=== PATIENT | female | born 1940 | race Caucasian/White ===

== ENCOUNTER → 2018-01-06 | Outpatient (CLI) | payer OTHER, MEDICARE ==
[~2018-01-06] VITALS: Ht 167.6 cm; Wt 68.0 kg
[~2018-01-06] MED LIST: ALLEGRA ALLERGY60 MG PO; ALPHA LIPOIC A300 MG PO; CALCIUM CARBO1250 MG PO; COREG6.25 MG PO; HYDROCODONE-AP1 EAC6 PO; JANUVIA100 MG PO; LIPITOR 20 MG T20 M1 PO; METFORMIN HCL500 MG PO; PREMARIN30 GM TOP; STOOL SOFTENER240 MG PO; TRAMADOL 50 MG50 MG PO; VERAPAMIL SR180 MG PO; VITAMIN B12-FO1 EAC1 PO; VITAMIN D31000 UNI2 PO; XARELTO20 MG PO
--- NOTE | ~2018-01-06 | HPC ---
[facility] [address] [place] [address] PAIN MANAGEMENT CONSULTATION Name: ERENDIRA GLOVER [facility] [id number] Admission: 01/06/18 Attend Phys: Brenden Tellez DO Discharge: Date of : 41 Report #: [id number] THIS REPORT FOR: //name// CC: Gavin Tellez DATE OF SERVICE: 01/06/2018 The patient is a 77-year-old female seen in consultation at the request of Dr. Fisher for assistance with management of left lumbar radicular pain radiating down into the foot. The patient notes she fell on 11/03/2017, severed small chip fracture in the right foot. Initially started with crutches and then wearing a boot on the right lower extremity, significantly exacerbated her gait disturbance and now she has left lumbar radicular pain. She notes paresthesia, electric burning, pain that is continuous, shooting, aching and tender, rates anywhere from 3-9 on a visual analog scale. Has subjective paresthesia going to left anterior lower extremity. Denies bowel or bladder changes or saddle anesthesia. Gets some relief with tramadol, ultimately require 2 at a time and some hydrocodone. She uses Xarelto for atrial fibrillation, hence is unable to take nonsteroidal anti-inflammatory agents. REVIEW OF SYSTEMS: Complete review of systems was attached to chart and gone over with the patient. She is , does not smoke or drink alcohol to excess. History of non-insulin dependent diabetes for which she takes metformin and Januvia. Hemoglobin A1c is well controlled, running in the 6.1 area. History of atrial fibrillation, again uses Xarelto as noted in chief complaint. Hypertension, treated with carvedilol and verapamil. Has had 2 spontaneous pneumothorax in 1984 and 1998. Otherwise, review of systems is noncontributory (negative). The patient is retired, has been for past 10 years. Pain impact score averages about 52/70. PHYSICAL EXAMINATION: This is a 5 feet 6 inches, 150-pound female, BMI is 24.2 kg/m2. Blood pressure is 144/91, pulse 82, respirations of 14. Cranial nerves 2-12 are grossly intact. Pupils equal, react to light and accommodation. Extraocular muscles are intact. There is no nystagmus or lateral gaze deviation. Thyroid is unremarkable. Upper extremity strength is preserved. Heart is regular and rhythmical at this time despite history of atrial fibrillation and SVT. Lungs are clear to auscultation. Abdomen is benign. Rises from chair using armrest. Has a markedly antalgic gait favoring the left leg. Left lower extremity dorsiflexion, extension and flexion is limited objectively about 3/5 to muscle testing. Right leg is stronger at 4-5/5. Patellar reflex is absent on the left, 1/4 in the right. Straight leg raise is grossly positive at 30 degrees. Achilles reflexes are generally preserved. Skin: Integument is intact. [facility] [address] [place] [address] PAIN MANAGEMENT CONSULTATION Name: ERENDIRA GLOVER Room #: REG [facility] Garza#: [id number] Admission: 01/06/18 Attend Phys: Brenden Tellez DO Discharge: Date of : 42 Report #: [id number] DIAGNOSTIC STUDIES: Including MRI of the lumbar spine from 11/29/2017 notes grade 1 anterolisthesis at L4-L5 measuring 0.5 cm, marked bilateral hypertrophic changes, mild bilateral neural foraminal narrowing. L3-L4 notes grade 1 anterolisthesis at L3-L4, again about 0.5 cm. There is an annular tear and small broad-based disk bulge at this level. ASSESSMENT: Symptomatic lumbar radiculopathy with clinical exam and history, left L4 distribution. RECOMMENDATION: The patient has been off Xarelto for 3 days. I will move forward with a left L4-L5 transforaminal epidural injection today. Continue tramadol 50 mg every 4-6 hours. Resume Xarelto tonight. Follow up in 3 weeks for reevaluation. We will have patient stop Xarelto 3 days prior to evaluation. If she has ongoing pain at that time, we may consider midline epidural injection L3-L4. Thank you for allowing me to participate in the patient's care. We will keep abreast of her progress. PROCEDURE: Transforaminal epidural injection under fluoroscopy. PROCEDURE NOTE: After both written and informed consent was obtained including risk of spinal cord damage, infection, increased pain and paralysis, the patient agreed to proceed. The patient was taken to the fluoroscopy suite, placed in a prone position with appropriate abdominal bolstering. After sterile prep with ChloraPrep and sterile drape, a skin wheal with 1% Xylocaine was raised. A 22 gauge 4-1/2 inch epidural Tuohy needle was inserted. From an oblique approach into the posterior-superior aspect of the left L4-L5 neural foramen with continuous pressure on the glass syringe plunger for loss of resistance. Glass syringe was filled with 2 cc of 0.1 Xylocaine. The glass loss of resistance syringe was removed. A low volume extension tubing was connected, negative aspiration was accomplished for cerebrospinal fluid or blood. 1 mL of Omnipaque was injected which showed spread both within the epidural space and laterally along the nerve root. This was followed with 80 mg of triamcinolone plus 1 mL of 1.5% preservative-free Xylocaine. Needle was partially withdrawn, 0.5 mL of Xylocaine was injected to clear the needle and the needle was removed. The area was cleansed, Band-Aid was applied. The patient was allowed to ambulate to the recovery room, discharged in good and stable condition. The patient has had a prior SENSITIVITY TO IODINE, she was given Benadryl [address] [address] PAIN MANAGEMENT CONSULTATION Name: ERENDIRA GLOVER Room #: REG [facility].#: [id number] Admission: 01/06/18 Attend Phys: Brenden Tellez DO Discharge: Date of : 41 Report #: [id number] p.o. prior to the procedure. She tolerated this well, had no pruritus or negative sequelae in the recovery room. <ELECTRONICALLY SIGNED> By: Brenden Tellez DO 01/07/18 0954 1226 Brenden Tellez DO /nt
[2018-01-06 10:07] VITALS: BP 144/91
== END | disposition home or self-care (01) ==
LOC: PAIN 07:07
DX: M54.16 Radiculopathy, lumbar region (principal); G89.29 Other chronic pain; I10 Essential (primary) hypertension; E11.9 Type 2 diabetes mellitus without complications; I48.91 Unspecified atrial fibrillation; M19.90 Unspecified osteoarthritis, unspecified site; Z87.01 Personal history of pneumonia (recurrent); Z79.891 Long term (current) use of opiate analgesic; Z98.890 Other specified postprocedural states; Z79.899 Other long term (current) drug therapy; Z91.041 Radiographic dye allergy status; Z88.8 Allergy status to other drugs, medicaments and biological substances; Z79.01 Long term (current) use of anticoagulants

== ENCOUNTER → 2018-01-26 | Outpatient (CLI) | payer OTHER, MEDICARE ==
[~2018-01-26] VITALS: Ht 167.6 cm; Wt 67.0 kg
--- NOTE | ~2018-01-26 | HPC ---
[facility] [place] [address] PAIN MANAGEMENT CONSULTATION Name: ERENDIRA GLOVER [facility] [id number] Admission: 01/26/18 Attend Phys: Brenden Tellez DO Discharge: Date of : 41 Report #: [id number] THIS REPORT FOR: //name// CC: Gavin Tellez DATE OF SERVICE: 01/26/2018 The patient is a 77-year-old female, prior seen in Pain Clinic 01/06/2018. We had progressed to perform a left L4-L5 transforaminal epidural injection at that time. That was actually her initial consultation. She had been referred by Dr. Jame Fisher. The patient returns to the Pain Clinic today noting that the transforaminal epidural injection afforded very good incremental relief, the patient specifically notes 60% relief about 3 weeks. Pain has gradually begun to recur. She is still better able to stand with less pain overall. PHYSICAL EXAMINATION: Shows a 77-year-old female, BMI is 23.9 kg/m2, blood pressure 142/76, pulse 82, respirations 16. Alert and oriented to person, place and time, judged to be a reasonable historian. Rises from chair using the armrest. Modestly antalgic gait. She has discernible left lower extremity hip flexion and extension strength diminution compared to the right. Grossly positive straight leg raise at 30 degrees. Patellar and Achilles reflexes, however, are preserved. Reviewed diagnostic studies including MRI of the lumbar spine from 11/29/2017 noting grade 1 anterolisthesis at L3-L4 measuring 0.5 cm with concave flattening of the anterior thecal sac at this level and some mild posterior flattening as well. L4-L5 similarly notes grade 1 anterolisthesis at L4-L5 measuring 0.5 cm with bilateral facet arthropathy with mild neural foraminal narrowing noted. ASSESSMENT: Symptomatic lumbar radiculopathy with incremental relief following 1 epidural injection. RECOMMENDATIONS: We will repeat left L4-L5 transforaminal epidural injection on Tuesday, 3 days off of Xarelto. <ELECTRONICALLY SIGNED> By: Brenden Tellez DO 01/30/18 0711 [id number] Brenden Tellez DO /nt
[2018-01-26 10:42] VITALS: BP 142/76
== END ==
LOC: PAIN 05:39
DX: M54.16 Radiculopathy, lumbar region (principal)

== ENCOUNTER → 2018-01-30 | Outpatient (CLI) | payer OTHER, MEDICARE ==
[~2018-01-30] VITALS: Ht 167.6 cm; Wt 67.9 kg
--- NOTE | ~2018-01-30 | HPC ---
[address] [place] [address] PAIN MANAGEMENT CONSULTATION Name: ERENDIRA GLOVER Room #: REG [facility] Kayla#: [id number] Admission: 01/30/18 Attend Phys: Brenden Tellez DO Discharge: Date of : 41 Report #: [id number] THIS REPORT FOR: //name// CC: Gavin Tellez DATE OF SERVICE: 01/30/2018 The patient is a very pleasant 77-year-old female, prior seen in the Pain Clinic 01/26/2018. I performed a left L4-L5 transforaminal epidural injection 01/06/2018 with 60% improvement ongoing relief of baseline pain. She had discernible symptoms compatible with lumbar radiculopathy. We sought authorization for left L4-L5 transforaminal epidural injection today. She has been off her Xarelto for 3 days. Physical exam is unchanged. She notes subjective pain score is 2 on a VAS. She wishes to repeat the injection as discussed at last visit. ASSESSMENT: Symptomatic lumbar radiculopathy. PROCEDURE: Left L4-L5 transforaminal epidural injection under fluoroscopy. PROCEDURE NOTE: After both written and informed consent was obtained including risk of spinal cord damage, infection, increased pain and paralysis, the patient agreed to proceed. The patient was taken to the fluoroscopy suite, placed in a prone position with appropriate abdominal bolstering. After sterile prep with ChloraPrep and sterile drape, a skin wheal with 1% Xylocaine was raised. A 22 gauge 4-1/2 inch epidural Tuohy needle was inserted. From an oblique approach into the posterior-superior aspect of the left L4-L5 neural foramen with continuous pressure on the glass syringe plunger for loss of resistance. Glass syringe was filled with 2 cc of 0.1 Xylocaine. The glass loss of resistance syringe was removed. A low volume extension tubing was connected, negative aspiration was accomplished for cerebrospinal fluid or blood. 1 mL of Omnipaque was injected which showed spread both within the epidural space and laterally along the nerve root. This was followed with 80 mg of triamcinolone plus 1 mL of 1.5% preservative-free Xylocaine. Needle was partially withdrawn, 0.5 mL of Xylocaine was injected to clear the needle and the needle was removed. The area was cleansed, Band-Aid was applied. The patient was allowed to ambulate to the recovery room, discharged in good and stable condition. <ELECTRONICALLY SIGNED> By: Brenden Tellez DO 02/02/18 0811 [id number] Brenden Tellez DO /nt
[2018-01-30 14:50] VITALS: BP 135/71
== END | disposition home or self-care (01) ==
LOC: PAIN 07:31
DX: M54.16 Radiculopathy, lumbar region (principal); G89.29 Other chronic pain; Z98.890 Other specified postprocedural states; Z91.041 Radiographic dye allergy status; Z79.899 Other long term (current) drug therapy